=== PATIENT | male | born 1985 | race African-American/Black ===

== ENCOUNTER 2022-04-20 12:14 | Emergency (ER) | payer SELFPAY | END 2022-04-20 12:28 | disposition left against medical advice (07) | LOC: ERS 12:14 | DX: Z53.29 Procedure and treatment not carried out because of patient's decision for other reasons (principal) ==

== ENCOUNTER 2022-11-15 03:25 | Emergency (ER) | payer SELFPAY | END 2022-11-15 03:52 | LOC: ERS 03:25 | DX: Z02.89 Encounter for other administrative examinations (principal) | CPT/HCPCS: 99282 ==